=== PATIENT | male | born 1950 | race Caucasian/White ===

== ENCOUNTER 2017-12-07 23:15 | Emergency (ER) | payer MEDICARE ==
[~2017-12-07] VITALS: Ht 165.1 cm; Wt 71.2 kg
--- NOTE | 2017-12-07 23:15 | NUR ---
BIB FAMILY C/O DIZZINESS WITH N/V ON AND OFF X 1 WEEK. VSS NAD A/OX4 ABLE TO MAKE NEEDS KNOWN. FAMILY AT BEDSIDE. WILL CONTINUE TO MONITOR FOR ANY CHANGES DURING THE SHIFT.
--- NOTE | 2017-12-08 00:19 | NUR ---
EKG AT BEDSIDE
[2017-12-08] MEDS ORDERED: MECLIZINE HCL 12.5 MG TABLET ONE (00:21)
[2017-12-08] MEDS ORDERED: MECLIZINE HCL 12.5 MG TABLET PO ONE (00:30)
[2017-12-08 00:35] LABS: BASOPHILS % (AUTO) 0.1 % (0.0-2.0); EOSINOPHILS % (AUTO) 0.1 % (0.0-6.0); HEMATOCRIT 45 % (39-51); HEMOGLOBIN 15.2 g/dL (13.5-17.5); LYMPHOCYTES % (AUTO) 10.3 % (20.0-44.0); MEAN CORPUSCULAR HGB CONC 34 g/dl (31.0-36.0); MEAN CORPUSCULAR VOLUME 90 fL (80-96); MONOCYTES # (AUTO) 0.2 /CMM (0.1-1.30); MONOCYTES % (AUTO) 1.8 % (2.0-12.0); NEUTROPHILS # (AUTO) 8.1 /CMM (1.8-8.9); NEUTROPHILS % (AUTO) 87.7 % (43.0-81.0); PLATELET COUNT (AUTO) 253 /CMM (150-450); RDW COEFFICIENT OF VARIATION 14.2 (11.5-15.0); RED BLOOD CELL COUNT(AUTO) 4.99 MIL/uL (4.5-6.0); WHITE BLOOD COUNT (AUTO) 9.3 K/uL (4.3-11.0)
[2017-12-08 00:48] LABS: INR 0.95 (0.87-1.13)
[2017-12-08 00:51] LABS: CREATININE 0.8 mg/dL (0.6-1.3); POTASSIUM 4.5 mmol/L (3.5-5.1)
[2017-12-08 00:55] LABS: ALBUMIN 3.9 g/dL (3.4-5.0); BILIRUBIN,DIRECT 0.1 mg/dL (0.0-0.2); BILIRUBIN,TOTAL 0.4 mg/dL (0.2-1.0); TOTAL PROTEIN, SERUM 8.2 g/dL (6.4-8.2)
[2017-12-08 03:01] VITALS: BP 130/71
== END 2017-12-08 03:01 | disposition home or self-care (01) ==
LOC: ER 23:15
DX: R42 Dizziness and giddiness (principal); J32.0 Chronic maxillary sinusitis; F10.10 Alcohol abuse, uncomplicated
CPT/HCPCS: 36415; 70450-TC; 80048-TC; 80076-TC; 85025-TC; 85730-TC; A4606; G0480; J8597; Z7610